=== PATIENT | female | born 1990 | race American Indian/Alaskan Native ===

== ENCOUNTER 2018-07-01 17:19 | Emergency (ER) | payer OTHER ==
[2018-07-01 18:47] LABS: Basophils # (Auto) 0.1 K/mm3 (0.0-0.1); Basophils % (Auto) 1.4 % (0.0-1.8); Eosinophils # (Auto) 0.2 K/mm3 (0.0-0.4); Eosinophils % (Auto) 2.5 % (0.0-4.3); Hemoglobin 12.3 gm/dl (10.1-14.3); Lymphocytes # (Auto) 2.1 K/mm3 (1.2-5.4); Lymphocytes % (Auto) 25.3 % (13.4-35.0); Mean Corpuscular HGB Conc 34 % (30-34); Mean Corpuscular Volume 79 fl (79-97); Monocytes # (Auto) 0.7 K/mm3 (0.0-0.8); Monocytes % (Auto) 8.9 % (0.0-7.3); Platelet Count 237 K/mm3 (140-440); Red Blood Count 4.59 M/mm3 (3.65-5.03); Red Cell Distribution Width 15.9 % (13.2-15.2)
[2018-07-01 18:57] LABS: HCG Qualitative,Urine Positive (Negative)
[2018-07-01 18:58] LABS: Bilirubin,Urine NEG (Negative); Blood,Urine NEG (Negative); Color,Urine Yellow (Yellow); Mucus,Urine FEW /HPF; Protein,Urine <15 mg/dL mg/dL (Negative)
[2018-07-01] MEDS ORDERED: MACROBID PO ONE (19:04)
[2018-07-01] MEDS ORDERED: TYLENOL PO ONE (19:05)
[2018-07-01 19:11] LABS: Alanine Aminotransferase 9 units/L (7-56); BUN/Creatinine Ratio 17; Blood Urea Nitrogen 10 mg/dL (7-17); Calcium 9.5 mg/dL (8.4-10.2); Hemolysis Index 3
--- NOTE | 2018-07-01 19:18 | Emergency Department Report ---
HPI - General Chief Complaint: Headache Time Seen by Provider: 07/01/18 18:03 - HPI HPI: 28-year-old -[place] female presents to the emergency department with a few different complaints. Patient says that she has been having 1 week of lower abdominal and pelvic discomfort. She denies any dysuria, vaginal bleeding or discharge, diarrhea but does say that she has had some mild constipation. Patient says that she has missed her last 2 menstrual cycles but says that "the last time that I missed 2 cycles I was not ." The patient also c omplains of a headache to the front of the head and behind the eyes, as well as to the back of the head. This occurs intermittently over the past 3 days. Lastly, the patient complains of what she calls shortness of breath. However the patient describes it more as becoming easily fatigued with exertion. She denies any past medical history. She has not taken anything for her symptoms prior to presentation. She denies any tobacco or illicit drug use or abuse. She does not have a primary care physician. ED Past Medical Hx - Past Medical History Previous Medical History?: No - Surgical History Past Surgical History?: Yes Additional Surgical History: - Social History Smoking Status: Never Smoker Substance Use Type: None - Medications Home Medications: Home Medications Medication Instructions Recorded Confirmed Last Taken Type Nitrofurantoin Monohyd/M-Cryst 100 mg PO BID #14 capsule 07/01/18 Unknown Rx [Macrobid 100 mg Capsule] Vits96/Iron Fum/Folic 1 each PO QDAY #30 tablet 07/01/18 Unknown Rx [ Tablet] ED Review of Systems ROS: Stated complaint: HEADACHE/SOB/BLURRED VISION Other details as noted in HPI Constitutional: other (fatigue). denies: fever Eyes: denies: eye pain, eye discharge ENT: denies: ear pain, throat pain Respiratory: denies: cough, wheezing Cardiovascular: denies: chest pain, palpitations Gastrointestinal: abdominal pain. denies: vomiting Genitourinary: denies: dysuria, discharge Musculoskeletal: denies: back pain, arthralgia Skin: denies: rash, lesions Neurological: headache. denies: numbness Physical Exam - Physical Exam Vital Signs: Vital Signs 07/01/18 07/01/18 17:24 18:46 Temperature 97.6 F Pulse Rate 84 82 Respiratory 16 18 Rate Blood Pressure 139/53 Blood Pressure 122/74 [Left] O2 Sat by Pulse 99 100 Oximetry Physical Exam: GENERAL: The patient is well-developed well-nourished. HEENT: Normocephalic. Atraumatic. Patient has moist mucous membranes. EYES: Extraocular motions are intact. Pupils are equal and reactive to light bilaterally. NECK: Supple. Trachea is midline. CHEST/LUNGS: Clear to auscultation. There is no respiratory distress noted. HEART/CARDIOVASCULAR: Regular. There is no tachycardia. There is no obvious murmur. ABDOMEN: Abdomen is soft. Mild left lower quadrant tenderness to palpation. No guarding. Patient has normal bowel sounds. There is no abdominal distention. SKIN: Skin is warm and dry. NEURO: The patient is awake, alert, and oriented. The patient is cooperative. The patient has no focal neurologic deficits. The patient has normal speech. MUSCULOSKELETAL: There is no tenderness or deformity. There is no limitation range of motion. There is no evidence of acute injury. ED Course Vital Signs 07/01/18 07/01/18 17:24 18:46 Temperature 97.6 F Pulse Rate 84 82 Respiratory 16 18 Rate Blood Pressure 139/53 Blood Pressure 122/74 [Left] O2 Sat by Pulse 99 100 Oximetry ED Medical Decision Making - Lab Data Result diagrams: 07/01/18 18:30 07/01/18 18:30 - EKG Data -: EKG Interpreted by In EKG shows normal: sinus rhythm, axis, intervals, QRS complexes, ST-T waves Rate: normal - EKG Data When compared to previous EKG there are: previous EKG unavailable Interpretation: normal EKG - Radiology Data Radiology results: report reviewed PROCEDURE: US OB TRANSVAGINAL TECHNIQUE: Real-time transvaginal sonography of the uterus, placenta, amniotic fluid, adnexa, and fetus was performed with image documentation. Measurements were obtained to determine age/size. M-mode Doppler was used to document heartbeat. CPT 46268 HISTORY: pelvic pain, COMPARISON: No prior studies are available for comparison. FINDINGS: CRL: 36.6mm, which corresponds to a gestational age of: 10weeks, 4 days. Yolk Sac: Normal. Embryonic Cardiac Activity: 171 beats per minute Gestational Sac: Normal. Right Ovary: Normal. Left Ovary: There is a 2.3 centimeter cyst in the left ovary. Estimated delivery date: 01/23/2019 Comment: Complete anatomic survey at 18-20 weeks suggested. IMPRESSION: 1. Single living intrauterine gestation at approximately 10 weeks and 4 days 2. EDC by US 01/23/2019. Transcribed By: CO Dictated By: AARON BERMUDEZ MD Electronically Authenticated By: AARON BERMUDEZ MD Signed Date/Time: 07/01/182029 - Medical Decision Making Patient came in with a complaint of some pelvic pain, exertional fatigue and a headache. However the patient appeared fixated on the fact that she had missed some menstrual cycles. Urine was positive. Ultrasound came back showing a live intrauterine gestation at about 10 weeks and 4 days. She was given some Tylenol for her headache and Macrobid for a mild urinary tract infection. Beta hCG of about 50,000+. On reevaluation the patient says she is feeling improved and feels that a lot of her symptoms are attributed to her and does not want any further imaging or evaluation. 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 She was started on vitamins and given a prescription of the Macrobid. She will return to the ER with any worsening of her symptoms or any acute distress. - Differential Diagnosis , fibroids, colitis, tension headache, migraine Critical Care Time: No Critical care attestation.: If time is entered above; I have spent that time in minutes in the direct care of this critically ill patient, excluding procedure time. ED Disposition Clinical Impression: Qualifiers: Weeks of gestation: 10 weeks Qualified Code(s): Z3A.10 - 10 weeks gestation of Headache Qualifiers: Headache type: unspecified Headache chronicity pattern: unspecified pattern Intractability: not intractable Qualified Code(s): R51 - Headache UTI (urinary tract infection) Qualifiers: Urinary tract infection type: acute cystitis Hematuria presence: without hematuria Qualified Code(s): N30.00 - Acute cystitis without hematuria Disposition: DC-01 TO HOME OR SELFCARE Is pt being admited?: No Condition: Stable Instructions: (ED), Urinary Tract Infection in Women (ED), Acute Headache (ED) Additional Instructions: Please follow-up with your [employer] [facility] in the next few days. Start taking the vitamins. Take the antibiotics as prescribed for your urinary tract infection. He can take Tylenol every 4 hours, using weight-based dosing, as needed for any fever or discomfort. Return to the emergency Department with any worsening of her symptoms, development of any vaginal bleeding, with any acute distress. Prescriptions: Nitrofurantoin Monohyd/M-Cryst [Macrobid 100 mg Capsule] 100 mg PO BID #14 capsule Vits96/Iron Fum/Folic [ Tablet] 1 each PO QDAY #30 tablet Referrals: OBGYN, Your [Other] - 2-3 Days RIKKI HAUSER MD [Primary Care Provider] - 3-5 Days
--- NOTE | 2018-07-01 20:30 | Ultrasound Report ---
FINAL REPORT PROCEDURE: US OB TRANSVAGINAL TECHNIQUE: Real-time transvaginal sonography of the uterus, placenta, amniotic fluid, adnexa, and fe tus was performed with image documentation. Measurements were obtained to determine age/size. M -mode Doppler was used to document heartbeat. CPT 81437 HISTORY: pelvic pain, COMPARISON: No prior studies are available for comparison. FINDINGS: CRL: 36.6mm, which corresponds to a gestational age of: 10weeks, 4 days. Yolk Sac: Normal. Embryonic Cardiac Activity: 171 beats per minute Gestational Sac: Normal. Right Ovary: Normal. Left Ovary: There is a 2.3 centimeter cyst in the left ovary. Estimated delivery date: 01/23/2019 Comment: Complete anatomic survey at 18-20 weeks suggested. IMPRESSION: 1. Single living intrauterine gestation at approximately 10 weeks and 4 days 2. EDC by US 01/23/2019.
--- NOTE | 2018-07-01 20:30 | Ultrasound Report ---
FINAL REPORT PROCEDURE: US OB TRANSVAGINAL TECHNIQUE: Real-time transvaginal sonography of the uterus, placenta, amniotic fluid, adnexa, and fe tus was performed with image documentation. Measurements were obtained to determine age/size. M -mode Doppler was used to document heartbeat. CPT 94468 HISTORY: pelvic pain, COMPARISON: No prior studies are available for comparison. FINDINGS: CRL: 36.6mm, which corresponds to a gestational age of: 10weeks, 4 days. Yolk Sac: Normal. Embryonic Cardiac Activity: 171 beats per minute Gestational Sac: Normal. Right Ovary: Normal. Left Ovary: There is a 2.3 centimeter cyst in the left ovary. Estimated delivery date: 01/23/2019 Comment: Complete anatomic survey at 18-20 weeks suggested. IMPRESSION: 1. Single living intrauterine gestation at approximately 10 weeks and 4 days 2. EDC by US 01/23/2019.
[2018-07-01 21:09] VITALS: BP 118/74
== END 2018-07-01 21:05 | disposition home or self-care (01) ==
LOC: ED 17:19
DX: O26.891 Other specified pregnancy related conditions, first trimester (principal); O23.41 Unspecified infection of urinary tract in pregnancy, first trimester; N30.00 Acute cystitis without hematuria; R51 Headache; Z3A.10 10 weeks gestation of pregnancy
CPT/HCPCS: 36415; 76801; 76817; 80053; 81001; 81025; 84702; 85025; 93005; 93010

== ENCOUNTER 2018-10-13 15:56 | Outpatient (CLI) | payer OTHER ==
[2018-10-13 17:12] LABS: Bacteria,Urine 1+ /HPF (Negative); Bilirubin,Urine NEG (Negative); Blood,Urine NEG (Negative); Color,Urine Yellow (Yellow); Mucus,Urine FEW /HPF; Protein,Urine <15 mg/dL mg/dL (Negative)
[2018-10-13] MEDS ORDERED: LACTATED RINGERS 1,000 ML IV SCH (18:00)
[2018-10-13] MEDS ORDERED: ROCEPHIN/NS 1 GM/50 ML 1 GM/50 ML BAG IV ONE (18:00)
[2018-10-13 18:30] VITALS: BP 106/63
== END 2018-10-13 19:55 | disposition home or self-care (01) ==
LOC: TRG 15:56
PROVIDERS: ATTEND Obstetrics & Gynecology
DX: O26.892 Other specified pregnancy related conditions, second trimester (principal); R10.9 Unspecified abdominal pain; Z3A.25 25 weeks gestation of pregnancy
CPT/HCPCS: 59025; 81001; 96361; 96365; J0696; J7120

== ENCOUNTER 2019-01-17 11:30 | Inpatient (IN) | payer OTHER ==
[2019-01-22] MEDS ORDERED: BICITRA PO ONE (06:00)
[2019-01-22] MEDS ORDERED: PITOCin/NS 20 UNIT/1000ML DRIP 20 UNITS/1,000 ML BAG IV SCH ×2 (06:00→13:00)
[2019-01-22] MEDS ORDERED: PEPCID IV ONE (06:00)
[2019-01-22] MEDS ORDERED: REGLAN IV ONE (06:10)
[2019-01-22] MEDS: LACTATED RINGERS 1,000 ML IV SCH ×2 (06:15→06:42)
--- NOTE | 2019-01-22 06:41 | Anesthesia Consultation ---
Anesthesia Consult and Med Hx Date of service: 01/22/19 - Airway Anesthetic Teeth Evaluation: Good ROM Head & Neck: Adequate Mental/Hyoid Distance: Adequate Mallampati Class: Class II Intubation Access Assessment: Probably Good - Pulmonary Exam CTA: Yes - Cardiac Exam Cardiac Exam: RRR - Pre-Operative Health Status ASA Pre-Surgery Classification: ASA2 Proposed Anesthetic Plan: Spinal - Pulmonary Hx Asthma: No - Cardiovascular System Hx Hypertension: No - Central Nervous System Hx Seizures: No Hx Psychiatric Problems: No - Endocrine Hx Renal Disease: No Hx Hypothyroidism: No Hx Hyperthyroidism: No - Hematic Hx Anemia: No Hx Sickle Cell Disease: No - Other Systems Hx Alcohol Use: No Hx Obesity: No
--- NOTE | 2019-01-22 06:41 | Anesthesia Day of Surgery ---
Anesthesia Day of Surgery - Day of Surgery Patient Examined: Yes Patient H&P Reviewed: Yes Patient is NPO: Yes
[2019-01-22] MEDS ORDERED: DEXMEDETOMIDINE IV ONE (06:48)
[2019-01-22 07:18] LABS: Basophils % (Auto) 0.4 % (0.0-1.8); Eosinophils # (Auto) 0.1 K/mm3 (0.0-0.4); Eosinophils % (Auto) 0.9 % (0.0-4.3); Hematocrit 36.3 % (30.3-42.9); Hemoglobin 12.3 gm/dl (10.1-14.3); Lymphocytes # (Auto) 1.8 K/mm3 (1.2-5.4); Mean Corpuscular HGB Conc 34 % (30-34); Mean Corpuscular Volume 82 fl (79-97); Monocytes % (Auto) 12.1 % (0.0-7.3); Platelet Count 133 K/mm3 (140-440); Red Blood Count 4.45 M/mm3 (3.65-5.03); Red Cell Distribution Width 16.4 % (13.2-15.2)
[2019-01-22] MEDS ORDERED: SODIUM CHLORIDE FLUSH SYRINGE 10 ML IV PRN ×2 (08:00→13:00)
[2019-01-22] MEDS ORDERED: DILAUDID IV PRN ×2 (08:00)
[2019-01-22] MEDS ORDERED: NARCAN 0.4 MG/1 ML IV PRN ×2 (08:00→13:00)
[2019-01-22] MEDS ORDERED: PHENERGAN PR PRN ×2 (08:00→13:00)
[2019-01-22] MEDS ORDERED: PHENERGAN PO PRN (08:00)
[2019-01-22] MEDS ORDERED: ZOFRAN IV PRN ×2 (08:00→13:00)
[2019-01-22] MEDS ORDERED: NACL 0.9% IR ONE (11:33)
[2019-01-22] MEDS ORDERED: WATER FOR IRRIG STERILE IR ONE (11:34)
[2019-01-22] MEDS ORDERED: BENADRYL ONE (11:48)
[2019-01-22] MEDS ORDERED: TORADOL ONE (11:48)
[2019-01-22] MEDS ORDERED: DILAUDID ONE (11:50)
[2019-01-22] MEDS ORDERED: TYLENOL PO PRN (12:30)
[2019-01-22] MEDS ORDERED: LANSINOH TP PRN (12:30)
[2019-01-22] MEDS ORDERED: TUCKS PAD TP PRN (12:30)
--- NOTE | 2019-01-22 12:33 | History and Physical Report ---
History of Present Illness Date of examination: 01/22/19 Date of admission: 01/22/19 05:46 Chief complaint: SIUP at 39 weeks and 5 days not in labor. Previous C/section. History of present illness: Patient is a 28 year old , LMP 04/19/18, EDC 01/24/19 at 39 weeks and 5 days gestation who was admitted for elective repeat C/section. She denies any contractions, fluid leakage or bleeding. She reports good movement. tracing is CAT1. Cervix: 1 cm/50%/-2. 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 Family/Genetic History: none Social history: no significant social history - Obstetrical History Expected Date of Delivery: 01/24/19 Actual Gestation: 39 Week(s) 5 Day(s) : 3 Para: 1 Spontaneous Abortions: 0 Induced : 1 Number of Living Children: 1 Medications and Allergies Allergies Allergy/AdvReac Type Severity Reaction Status Date / Time No Known Allergies Allergy Verified 07/01/18 17:28 Home Medications Medication Instructions Recorded Confirmed Last Taken Type Nitrofurantoin Monohyd/M-Cryst 100 mg PO BID #14 capsule 07/01/18 Unknown Rx [Macrobid 100 mg Capsule] Vits96/Iron Fum/Folic 1 each PO QDAY #30 tablet 07/01/18 Unknown Rx [ Tablet] Ibuprofen [Motrin] 800 mg PO Q8HR PRN #30 tablet 01/22/19 Unknown Rx oxyCODONE /ACETAMINOPHEN [Percocet 1 tab PO Q4HR #20 tab 01/22/19 Unknown Rx 5/325] Active Meds: Active Medications Hydromorphone HCl (Dilaudid) 0.5 mg IV Q5M PRN PRN Reason: Breakthrough Pain Stop: 01/22/19 15:00 Hydromorphone HCl (Dilaudid) 0.5 mg IV Q4H PRN PRN Reason: breakthrough pain > 7/10 Oxytocin/Sodium Chloride (Pitocin/Ns 20 Unit/1000ml Drip) 20 units in 1,000 mls @ 0 mls/hr IV TITR MARISSA Lactated Ringer's (Lactated Ringers) 1,000 mls @ 2,250 mls/hr IV PREOP MARISSA Stop: 01/23/19 06:27 Last Admin: 01/22/19 06:42 Dose: 2,250 mls/hr Documented by: Naloxone HCl (Narcan 0.4 Mg/1 Ml) 0.2 mg IV Q2MIN PRN PRN Reason: Res Rate </= 8 or 02 SAT < 92% Ondansetron HCl (Zofran) 4 mg IV Q8H PRN PRN Reason: Nausea And Vomiting Promethazine HCl (Phenergan) 25 mg PO Q6H PRN PRN Reason: Nausea And Vomiting Promethazine HCl (Phenergan) 25 mg CA Q6H PRN PRN Reason: Nausea And Vomiting Sodium Chloride (Sodium Chloride Flush Syringe 10 Ml) 10 ml IV PRN PRN PRN Reason: flush - Vital Signs Vital signs: Vital Signs Pulse BP 90 124/78 01/22/19 06:34 01/22/19 06:34 Temp Pulse Resp BP Pulse Ox 98.4 F 90 18 124/78 01/22/19 07:03 01/22/19 06:34 01/22/19 06:39 01/22/19 06:34 - Physical Exam Cardiovascular: Normal S1, Normal S2 Lungs: Positive: Clear to auscultation Vulva: both: normal Adnexa: both: normal Deep Tendon Reflex Grade: Normal +2 - Obstetrical FHR: category 1 Uterine Contraction Monitor Mode: External Cervical Dilatation: 1 Cervical Effacement Percentage: 50 station: -2 Uterine Contraction Pattern: Absent Results Result Diagrams: 01/22/19 06:03 Abnormal lab results 01/22/19 Range/Units 06:03 RDW 16.4 H (13.2-15.2) % Plt Count 133 L (140-440) K/mm3 Ness % (Auto) 12.1 H (0.0-7.3) % Ness # 1.0 H (0.0-0.8) K/mm3 All other labs normal. Assessment and Plan - Patient Problems (1) 39 weeks gestation of Current Visit: Yes Status: Acute (2) Previous section Current Visit: Yes Status: Acute Plan to address problem: Admit to labor floor. Routine preop labs. IV hydration. Keep NPO. monitoring. Patient was counselled for repeat C/section. Risks, benefits, and alternatives of the procedure were discussed in detail with the patient which included but not limited to the risk of infection, hemorrhage requiring blood transfusion, injury to the bowel or bladder and blood vessels. The patient expressed understanding, her questions were answered, and she gave informed consent. Anesthesia notified. (3) Obesity Current Visit: Yes Status: Acute
--- NOTE | 2019-01-22 12:38 | Operative Report ---
Operative Report Operative Report: Preoperative diagnosis 1. SIUP at 39 weeks and 5 days gestation not in labor. 2. Previous C/section. Postoperative diagnosis: Same. Procedure: Repeat low-transverse section. Surgeon: Dr. Tomas Senior Lead Developer: none Anesthesia: spinal. IVF: RL 1700 cc EBL: 700 cc Urine: 100 cc clear Complications: none. Intraoperative findings: 1. A male found in an KELSI position, delivered at 11:44 AM, Apgars 8 at 1 minute and 9 at 5 minutes, weight 9 lbs. 3 oz. 2. Normal fallopian tubes and ovaries bilaterally. Procedure details: Risks, benefits, and alternatives of the procedure were discussed in detail with the patient which included but not limited to the risk of infection, hemorrhage requiring blood transfusion, injury to the bowel or bladder and blood vessels. The patient expressed understanding, her questions were answered, and she gave informed consent. The patient was taken to the operating room with an IV fluid infusing Ringers lactate. In the operating room, she was placed in a sitting position and given spinal anesthesia. She was then placed in a dorsal supine position with a leftward tilt. Daniels catheter in Venodyne boots were placed. The abdomen was washed and she was prepared and draped in usual sterile fashion. After confirming adequate anesthesia, the Pfannenstiel skin incision was made in the lower abdomen about 2 cm above the pubic symphysis using the scalpel. This incision was carried down to the underlying fascia using the Bovie. The fascia was opened bilaterally in a curvilinear fashion using the Bovie. 2 straight Kocker clamps were used to grasp the upper edge of the fascia from which the underlying rectus abdominis muscles was dissected off using the Bovie. A similar procedure was done with the lower edge of the fascia to dissect the underlying rectus abdominis muscle. The muscle was bluntly from the midline by pulling. The parietal peritoneum was grasped with 2 hemostat clamps and entered sharply using Metzenbaum scissors. A quick survey of the anatomy revealed a gravid uterus, normal fallopian tubes and ovaries bilaterally. A bladder flap was created. Jw'O retractor was placed in the incision for proper visualization. A low transverse incision was made in the lower uterine segment using the scalpel and extended bilaterally in a curvilinear fashion using bandage scissors. There was copious amount of clear amniotic fluids. The infant was found in an KELSI position, the head was delivered atraumatically f ollowed by the delivery of the shoulders and the rest of the body at 11:44 AM. The cord was clamped 2 and cut and the infant was handed off to the waiting technicians and trades workers. The infant was a male, Apgars were 8 at 1 minute and 9 at 5 minutes, weight was 9 pounds and 3 ounces. Cord blood was collected. The placenta was delivered manually and it was complete with a three-vessel cord. The uterine cavity was cleaned of clots and debris using dry lap sponges. The uterine incision was repaired in a running locked fashion using 0 Vicryl sutures. A second layer of imbrication was placed. The gutters were cleaned of clots and debris using dry lap sponges. After confirming adequate hemostasis, the instruments were removed from the abdominal cavity. The rectus muscle was reapproximated in an interrupted fashion using 0 Vicryl sutures. The fascia was closed in a running fashion using 0 Vicryl sutures. The sucutaneous adipose layer was closed with 2.0 chromic suture. The skin was closed with chiki. Sterile dressing was placed. The counts of laps, needles, sponges, and instruments were correct 2. The patient tolerated the procedure well, she was taken to the recovery room in a stable condition.
[2019-01-22] MEDS ORDERED: METHERGINE IM ONE ×2 (12:58→14:00)
[2019-01-22] MEDS ORDERED: MYLICON PO PRN (13:00)
[2019-01-22] MEDS ORDERED: MORPHINE IV PRN ×2 (13:00)
[2019-01-22] MEDS ORDERED: TORADOL IV PRN (13:00)
[2019-01-22] MEDS ORDERED: HEMABATE IM ONE ×2 (13:34→14:45)
--- NOTE | 2019-01-22 19:18 | Post Anesthesia Evaluation ---
- Post Anesthesia Evaluation Patient Participated: Yes Airway Patent: Yes Stable Respiratory Function: Yes Nausea/Vomiting: No Temp > 96.8F: Yes Pain Manageable: Yes Adequeate Hydration: Yes Anesthesia Complications: No Block Receding Appropriately: Yes Patient on Ventilator: No
[2019-01-22] MEDS: TORADOL IV PRN (20:00)
[2019-01-22] MEDS ORDERED: LACTATED RINGERS 1,000 ML IV SCH (20:00)
[2019-01-22] MEDS ORDERED: SENOKOT PO PRN (22:00)
[2019-01-22] MEDS ORDERED: ANUCORT-HC PR PRN (22:00)
[2019-01-22] MEDS ORDERED: MILK OF MAGNESIA PO PRN (22:00)
[2019-01-23 01:20] LABS: Hemoglobin 11.2 gm/dl (10.1-14.3)
[2019-01-23] MEDS: TORADOL IV PRN (02:17)
[2019-01-23] MEDS: PERCOCET 5/325 PO PRN ×3 (06:46→19:56)
[2019-01-23] MEDS: PRENATAL VITAMIN PO SCH (11:27)
[2019-01-23] MEDS: FEOSOL PO SCH (11:27)
[2019-01-23] MEDS: IBUPROFEN PO PRN ×2 (11:38→20:49)
--- NOTE | 2019-01-23 11:44 | Progress Note ---
Assessment and Plan A: POD#1 s/p Repeat c/s Pain well controlled Eating, drinking and ambulating without difficulty VSS Stable P: Routine PP/PO orders Encouraged ambulation in room Reviewed and encouraged incentive spirometer use Anticipate discharge home in 24-48 hours Subjective - Subjective Date of service: 01/23/19 Principal diagnosis: POD#1 s/p Repeat c/s Interval history: See H&P and operative note Patient reports: appetite normal, voiding normally, pain well controlled, flatus, ambulating normally, no bowel movement [place]: doing well, nursing well Objective - Vital Signs Latest vital signs: Vital Signs Temp Pulse Resp BP BP Pulse Ox 01/23/19 11:28 18 01/23/19 08:50 99.2 F 84 20 120/74 01/23/19 00:08 98.7 F 71 20 121/78 98 01/22/19 21:36 98.6 F 76 20 119/68 99 01/22/19 14:45 98.7 F 67 16 129/82 98 01/22/19 13:45 98.0 F 71 13 130/70 99 01/22/19 13:30 66 21 115/85 98 01/22/19 13:15 71 13 130/70 99 01/22/19 13:00 72 119/78 99 01/22/19 12:45 97.5 F L 65 12 110/64 98 01/22/19 12:40 97.6 F 71 13 110/66 98 01/22/19 12:35 97.5 F L 72 14 111/65 98 01/22/19 12:30 97.8 F 72 16 115/68 98 Intake and Output 01/22/19 01/23/19 01/23/19 23:59 07:59 15:59 Intake Total 320 320 320 Output Total 2500 Balance -2180 320 320 Intake: Oral 320 320 Intake, Free Water 320 Output: Urine 2500 Indwelling Catheter 2500 Other: Total, Intake Amount 320 320 Total, Output Amount 1600 - Exam Breasts: Present: normal, Cardiovascular: Present: Regular rate, Normal S1, Normal S2, No murmurs Lungs: Present: Clear to auscultation, Normal air movement Abdomen: Present: normal appearance, soft, tenderness (as expected post-op), normal bowel sounds. Absent: distention Vulva: both: normal Uterus: Present: firm, fundal height at umbilicus Extremities: Present: normal Deep Tendon Reflex Grade: Normal +2 Incision: Present: normal, dry, intact, dressed (Pressure dressing CDI)
[2019-01-24] MEDS: IBUPROFEN PO PRN ×2 (02:44→13:48)
[2019-01-24] MEDS: PERCOCET 5/325 PO PRN ×2 (02:45→13:49)
--- NOTE | 2019-01-24 10:26 | Discharge Summary ---
Providers - Providers Date of Admission: 01/22/19 05:46 Date of discharge: 01/24/19 (1400) Attending physician: JORGITO KILPATRICK MD Primary care physician: GEORGE CRANE Hospitalization Reason for admission: section (repeat), IUP at term Delivery: Procedure: section, repeat low transverse Episiotomy: none Laceration: none Incision: dry, intact Other procedures: none complications: none Discharge diagnosis: IUP at term delivered baby: male Hospital course: See admission H & P, OB operative report and PP progress notes Condition at discharge: Stable Disposition: DC-01 TO HOME OR SELFCARE - Discharge Diagnoses (1) Status post repeat low transverse section Status: Acute Plan - Discharge Medications Prescriptions: Ibuprofen [Motrin] 800 mg PO Q8HR PRN #30 tablet PRN Reason: Pain, Moderate (4-6) oxyCODONE /ACETAMINOPHEN [Percocet 5/325] 1 tab PO Q4HR #20 tab - Provider Discharge Summary Activity: routine, no sex for 6 weeks, no heavy lifting 4 weeks, no strenuous exercise Diet: routine Instructions: routine Additional instructions: [] Smoking cessation referral if applicable(refer to patient education folder for contact #) [] Refer to [facility] Booklet Call your doctor immediately for: * Fever > 100.5 * Heavy vaginal bleeding ( >1 pad per hour) * Severe persistent headache * Shortness of breath * Reddened, hot, painful area to leg or breast * Drainage or odor from incision. * Keep incision clean and dry at all times and follow doctor's instructions regarding bathing/showering - Follow up plan Follow up: SEAN AGUILAR MD [Staff Physician] - 7 Days
[2019-01-24] MEDS: PRENATAL VITAMIN PO SCH (10:31)
[2019-01-24] MEDS: FEOSOL PO SCH (10:31)
[2019-01-24 18:08] VITALS: BP 110/72
== END 2019-01-24 18:10 | disposition home or self-care (01) | DRG 766 ==
LOC: APU 01-22 05:46 → OB 01-22 14:45
PROVIDERS: ADMIT Obstetrics & Gynecology; ATTEND Obstetrics & Gynecology
PROC: 10D00Z1 Extraction of Products of Conception, Low, Open Approach (ICD-10-PCS; principal; 2019-01-22)
DX: O34.211 Maternal care for low transverse scar from previous cesarean delivery (principal); O99.214 Obesity complicating childbirth; E66.9 Obesity, unspecified; Z37.0 Single live birth; Z3A.39 39 weeks gestation of pregnancy; Z79.899 Other long term (current) drug therapy
CPT/HCPCS: 36415; 82962; 85014; 85018; 85025; 86705; 86706; 86762; 86850; 86900; 86901; 87517; G0378; A6250; J1170; J1200; J1885; J2210; J2270; J2590; J2765; J3490; J7120

== ENCOUNTER 2019-04-19 19:41 | Emergency (ER) | payer OTHER ==
[2019-04-19] MEDS ORDERED: ACETAMINOPHEN 500 MG TAB PO ONE (20:56)
[2019-04-19] MEDS ORDERED: IBUPROFEN 600 MG TAB PO ONE (20:56)
[2019-04-20 00:19] LABS: Bilirubin,Urine NEG (Negative); Blood,Urine SM (Negative); Color,Urine Yellow (Yellow); Mucus,Urine FEW /HPF
[2019-04-20 00:24] LABS: HCG Qualitative,Urine Negative (Negative)
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
[2019-04-20 02:05] VITALS: BP 124/66
== END 2019-04-20 02:25 | disposition home or self-care (01) ==
LOC: ED 19:41
DX: G44.319 Acute post-traumatic headache, not intractable (principal); M54.5 Low back pain; Z79.899 Other long term (current) drug therapy; Z79.1 Long term (current) use of non-steroidal anti-inflammatories (NSAID); V89.2XXA Person injured in unspecified motor-vehicle accident, traffic, initial encounter; Y93.89 Activity, other specified; Y92.488 Other paved roadways as the place of occurrence of the external cause; Y99.8 Other external cause status
CPT/HCPCS: 70450; 72131; 81001; 81025; 99284